=== PATIENT | male | born 1960 | race Hispanic/Latino ===

== ENCOUNTER 2020-06-05 18:30 | Emergency (ER) | payer OTHER ==
[~2020-06-05] VITALS: Ht 177.8 cm; Wt 118.0 kg
[2020-06-05 18:35] VITALS: BP 126/81
[2020-06-05] MEDS ORDERED: TADALAFIL20 M1 PO (18:49)
[2020-06-05] MEDS ORDERED: NORVASC5 M1 PO (18:54)
[2020-06-05] MEDS ORDERED: ATORVASTATIN CA20 MG PO (18:54)
[2020-06-05] MEDS ORDERED: METFORMIN500 M2 PO (18:54)
[2020-06-05] MEDS ORDERED: JARDIANCE10 MG PO (18:55)
[2020-06-05] MEDS ORDERED: ZESTRIL10 M1 PO (18:55)
[2020-06-05] MEDS ORDERED: ASPIRIN81 MG PO (18:56)
[2020-06-05] MEDS ORDERED: OMEPRAZOLE20 MG PO (18:56)
[2020-06-05] MEDS ORDERED: VITAMIN D22000 UNIT PO (18:57)
[2020-06-05] MEDS ORDERED: BACTROBAN TOP (19:16)
[2020-06-05] MEDS ORDERED: KEFLEX500 M1 PO (19:16)
== END 2020-06-05 19:30 | disposition home or self-care (01) | DRG 603 ==
LOC: ED 18:30
DX: L03.115 Cellulitis of right lower limb (principal); E11.9 Type 2 diabetes mellitus without complications; I10 Essential (primary) hypertension; Z79.84 Long term (current) use of oral hypoglycemic drugs